=== PATIENT | female | born 1960 | race Two or more races ===

== ENCOUNTER 2024-08-02 09:41 | Outpatient (AMB) | payer MEDICARE, MEDICAID, SELFPAY ==
[2024-08-02 09:59] VITALS: BP 129/89; PULSE 61; RESP 18; TEMP 36.3; O2SAT 99; BMI 17.6
--- NOTE | 2024-08-02 09:59 | ORTHONT_ITS ---
Vital signs 08/02/24 09:59 Height 1.52 m Height Method Stated Weight 40.823 kg Weight Measurement Method Standing Scale BMI 17.6 BP 129/89 H Blood Pressure Source Automatic Cuff Blood Pressure Location Right Upper Arm Position Sitting Respiration 18 Pulse 61 Pulse Source Monitor Temp 97.4 F Temp Source Temporal Artery Scan Pulse Oximetry (%) 99 Oxygen Delivery Method Room Air Med/Allergies Allergies & Medications Allergies No Known Allergies Allergy (Verified 08/02/24 10:00) Medication Reconciliation No Known Home Medications 05/26/23 [History Confirmed 08/02/24] Exam Exam Patient is in no acute distress and is cooperative with the examination today. Breathing is nonlabored. Patient has a normal mood and affect. Bilateral extremities were evaluated and demonstrates sensation intact to light touch. Palpable pedal pulses are present. No significant edema is present. Bilateral hips were examined. The patient has no pain with log roll of the hips. Internal rotation to 30 degrees and external rotation to 30 degrees is painless. Negative FADIR. Left knee was examined today. The left knee is in reasonable alignment. Range of motion from 0-120 degrees. Knee is stable to varus and valgus as well as AP translation with <5mm. Patient has a negative McMurrays. There is no pain with patellofemoral compression and no crepitus noted. The knee is nontender to palpation. The right knee was also examined. The right knee is in varus alignment. Range of motion from 10-115 degrees. Knee is stable to varus and valgus as well as AP translation with <5mm. Patient has a negative McMurrays. There is no pain with patellofemoral compression and no crepitus noted. The knee is tender to palpation medially. X-ray results demonstrate bilateral knees with significant nephritis of both knees. There is complete joint space loss medially and significant osteophytes Assessment and Plan Problem List (1) Pain in right knee: Status: Acute Plan: Patient is a 63-year-old female with right knee pain and likely right knee osteoarthritis. She has significant right joint spae narrowing and arthritisd. She has a quite impressive flexion contracture. The pain is affecting her quality life and happiness. We disucssed continued nonoperative treatment and total knee replacement. Recommend knee cortisone injections as patient would like to proceed with conservative treatment at this time. The risks and benefits of the procedure were reviewed with the patient and patient gave verbal consent to continue with the procedure. Procedure: performed by Dr. Membreno Using sterile technique the Bilateral knees were thoroughly prepped with alcohol, and approximately 1 cc of Kenalog 40 mg/mL and 4 cc of 1% lidocaine was injected into each knee without resistance into the medial tibial femoral joint space. The patient tolerated the procedure. (2) Arthritis of both knees: Status: Acute Advanced Care Planning Discussion Advance care planning discussed with:: patient Office Procedures GNS Level of Care Nursing/Assessment Patient Status: Established Patient Nursing Assessment/Reassesment: Medication Reconciliation, Update PMH in EMR and Vital Signs Coordination of Care: Complex Care and Chronic Disease 1-5, Education Complex Pt/Fam, Consent,records obtained, informed consent, 2-3 Insurance Autorizations needed, Results/Orders obtained and Staff clarify orders Special Needs: Language special needs Established Patient Charge Established Patient Point Assignment: 115 Established Patient Point Charge: EP Level 3 (80-115) Surgical Proc/IM SQ injection Major Surgical Procedure: Yes (KNEE INJECTIONS ) Medication Given Medication Given Medication Given: Yes Documented Dose Given: 8 Route: Infiitration Medication Given Medication Given Medication Given: Yes Documented Dose Given: 2 Route: Infiitration Office Meds Xylocaine 10 mg/mL (1 %) injection solution Performing Provider: Romario Membreno MD Performing Location: [facility] Administered by: Romario Membreno MD on 08/02/24 10:19 Dose Route Admin Location Dispensed Lot Number Expiration Date [facility] [employer] Specialist 40 mL Infiltration 40 mL [id number] FRESEN S KA triamcinolone acetonide 40 mg/mL suspension for injection Performing Provider: Romario Membreno MD Performing Location: [facility] Administered by: Romario Membreno MD on 08/02/24 10:19 Dose Route Admin Location Dispensed Lot Number Expiration Date [facility] [employer] 80 mg intra-articular 2 mL [id number] TEV A PARENTERAL Questionairres Past Medical History Past Medical History Have you ever been diagnosed with any of the following: Respiratory Problems Smoking: No Smoking Cessation Counseling: No Smoking Exposure: No Tobacco Use: No Subjective Immunization / Flu Flu Vaccine in the Last 12 Months: Yes Flu Vaccine Exclusion Criteria: Allergy to Eggs History of Present Illness Chief complaint: bilateral knee pain Patient is a 63-year-old female with right knee pain has been ongoing for 8 years. She has tried injections in the past. She has tried anti-inflammatories with minimal relief and due to GI side effects. She reports the pain is bothering her and is affecting her quality life and happiness.The right knee pain is affecting her quality life and happiness. She has had multiple injections with me and would like new ones today. She would like to get surgery in the summertime as her daughter will be around Review of Systems Review of Systems: All systems negative unless otherwise noted in HPI.
== END 2024-08-02 10:16 | disposition home or self-care (01) ==
LOC: HODSRG 09:41
PROVIDERS: PCP Physician Assistant; Referring Provider Physician Assistant; Supervising Provider Orthopaedic Surgery Adult Reconstructive Orthopaedic Surgery; Visit Provider Orthopaedic Surgery Adult Reconstructive Orthopaedic Surgery
DX: M25.561 Pain in right knee (principal); M17.0 Bilateral primary osteoarthritis of knee; M25.80 Other specified joint disorders, unspecified joint
CPT/HCPCS: 20610; 99213; J3301; J3490; G0463

== ENCOUNTER 2024-12-12 08:49 | Outpatient (AMB) | payer MEDICARE, MEDICAID, SELFPAY ==
[2024-12-12 09:08] VITALS: BP 155/83; PULSE 72; RESP 18; TEMP 36.2; O2SAT 98; BMI 17.2
--- NOTE | 2024-12-12 09:08 | ORTHONT_ITS ---
Vital signs 12/12/24 09:08 Height 1.52 m Height Method Stated Weight 39.916 kg Weight Measurement Method Standing Scale BMI 17.2 BP 155/83 H Blood Pressure Source Automatic Cuff Blood Pressure Location Left Upper Arm Position Sitting Respiration 18 Pulse 72 Pulse Source Monitor Temp 97.1 F Temp Source Temporal Artery Scan Pulse Oximetry (%) 98 Oxygen Delivery Method Room Air Med/Allergies Allergies & Medications Allergies No Known Allergies Allergy (Verified 12/12/24 09:10) Medication Reconciliation No Known Home Medications 05/26/23 [History Confirmed 12/12/24] Exam Exam Patient is in no acute distress and is cooperative with the examination today. Breathing is nonlabored. Patient has a normal mood and affect. Bilateral extremities were evaluated and demonstrates sensation intact to light touch. Palpable pedal pulses are present. No significant edema is present. Bilateral hips were examined. The patient has no pain with log roll of the hips. Internal rotation to 30 degrees and external rotation to 30 degrees is painless. Negative FADIR. Left knee was examined today. The left knee is in reasonable alignment. Range of motion from 0-120 degrees. Knee is stable to varus and valgus as well as AP translation with <5mm. Patient has a negative McMurrays. There is no pain with patellofemoral compression and no crepitus noted. The knee is nontender to palpation. The right knee was also examined. The right knee is in varus alignment. Range of motion from 10-115 degrees. Knee is stable to varus and valgus as well as AP translation with <5mm. Patient has a negative McMurrays. There is no pain with patellofemoral compression and no crepitus noted. The knee is tender to palpation medially. X-ray results demonstrate bilateral knees with significant arthritis of both knees. There is complete joint space loss medially and significant osteophytes Assessment and Plan Problem List (1) Pain in right knee: Status: Acute Plan: Patient is a 63-year-old female with right knee pain and likely right knee osteoarthritis. She has significant right joint spae narrowing and arthritisd. She has a quite impressive flexion contracture. The pain is affecting her quality life and happiness. We disucssed continued nonoperative treatment and total knee replacement. She would like to proceed with a right total knee replacement and would like to get injections in her left The nature and purpose of the total knee replacement, alternative method(s) of treatment, the material risks involved, and the possibility of complications were fully explained to the patient. The patient does NOT have any of the following contraindications to TKA: - Active infection of the knee joint, OR - Active systemic bacteremia, OR - Active skin infection or open wound at surgical site, OR - Neuropathic arthritis, OR - Severe, rapidly progressive neurological disease, OR - Severe medical condition that makes risks of surgery outweigh the potential benefit The patient was told the most common risks and complications associated with a total knee replacement include, but are not limited to: blood clots in the leg, fatal pulmonary embolism, dislocation of the prosthesis, intraoperative and postoperative fractures of the femur or tibia, infection, failure of the prosthesis or grafting materials, complications from anesthesia, reactions to blood transfusions, postoperative leg length inequality, instability of the knee replacement, nerve damage or injury, vascular injury, delayed wound healing, infection, other injury or even . In addition, there are risks associated with anesthesia given during this operation. Also, the patient was told that after undergoing a total knee replacement there may still be persistent pain or disability. The patient was informed that the success of this operation in part depends upon the mechanical devices which are going to be implanted and that these devices can fail or malfunction, and may need to be repaired or replaced and there are no guarantees as to the longevity of this device or its parts and that it or its parts could fail prematurely. The patient was also notified that during the course of surgery, there may be a need to use bone graft from donors, and that any bone graft used will be carefully screened for communicable diseases, including AIDS, hepatitis, Sivakumar-Creutzfeldt, or other diseases, but despite the screening procedures, there is a small chance that they could contract one of these diseases. Finally, the patient was asked to follow completely and fully with all advice and recommended treatments, and that recovery and ultimate outcome are affected by their compliance with recommended treatment. We discussed the risks, benefits and treatment alternatives, and the patient is interested in proceeding with surgery. We will try to set this up as expeditiously as possible. Recommend knee cortisone injection as patient would like to proceed with conservative treatment at this time. The risks and benefits of the procedure were reviewed with the patient and patient gave verbal consent to continue with the procedure. Procedure: performed by Dr. Membreno Using sterile technique the left knee was thoroughly prepped with alcohol, and approximately 1 cc of Kenalog 40 mg/mL and 4 cc of 1% lidocaine was injected without resistance into the medial tibial femoral joint space. The patient tolerated the procedure. (2) Arthritis of both knees: Status: Acute Advanced Care Planning Discussion Advance care planning discussed with:: patient Office Procedures GNS Level of Care Nursing/Assessment Patient Status: Established Patient Nursing Assessment/Reassesment: Medication Reconciliation, Update PMH in EMR and Vital Signs Coordination of Care: Complex Care and Chronic Disease 1-5, Education Complex Pt/Fam, Consent,records obtained, informed consent, Results/Orders obtained and Staff clarify orders Special Needs: Language special needs Established Patient Charge Established Patient Point Assignment: 95 Established Patient Point Charge: EP Level 3 (80-115) MA Intake Visit Data Collection New Patient or Established: Established Patient (seen at [facility] within 3 years) Reason for Visit:: PRE-OP RT TKA Seen by Clinical Staff ONLY (RN/MA): No 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 PCP or OBGYN visit in last 3 months: Yes Hx Now: No Do You Feel Safe at Home: Yes Authorities Contacted: N/A Questionairres Past Medical History Past Medical History Have you ever been diagnosed with any of the following: Respiratory Problems Smoking: No Smoking Cessation Counseling: No Smoking Exposure: No Tobacco Use: No Subjective Visit Visit for: follow up visit and knee Immunization / Flu Flu Vaccine in the Last 12 Months: No Flu Vaccine Exclusion Criteria: No Exclusion Criteria History of Present Illness Chief complaint: bilateral knee pain Patient is a 63-year-old female with right knee pain has been ongoing for 8 years. She has tried injections in the past. She has tried anti-inflammatories with minimal relief and due to GI side effects. She reports the pain is bothering her and is affecting her quality life and happiness.The right knee pain is affecting her quality life and happiness. She has had multiple injections with me and would like new ones today. She would like to get surgery forher right knee as her daughter is now around Pain Pain level (0-10): 8 Pain duration: ALL DAY Pain location: inside (medial) and anterior Pain quality: sharp, dull and aching Pain timing: increases with activity and stairs Associated signs & symptoms: weakness and stiffness Ambulatory data Ambulatory device: none Treatments Improvement with previous injections: No Improvement with PT: No Improvement with NSAIDS: no Review of Systems Review of Systems: All systems negative unless otherwise noted in HPI.
--- NOTE | 2024-12-12 09:12 | XR_ITS ---
Examination: Shoulder right 4 views Technique: Shoulder AP internal rotation, AP external rotation, Y view shoulder, axial shoulder, 4 views Exam date and time :08/14/2024 0929 hours INDICATIONS: Injury to the shoulder 20 years ago with persistent shoulder pain. FINDINGS: Advanced osteoarthritis glenohumeral joint Obliteration of the space between the humeral head and the acromium No fracture No AC joint separation IMPRESSION: Advanced osteoarthritis glenohumeral joint
== END 2024-12-12 09:28 | disposition home or self-care (01) ==
LOC: HODSRG 08:49
PROVIDERS: PCP Physician Assistant; Referring Provider Physician Assistant; Supervising Provider Orthopaedic Surgery Adult Reconstructive Orthopaedic Surgery; Visit Provider Orthopaedic Surgery Adult Reconstructive Orthopaedic Surgery
DX: M25.561 Pain in right knee (principal); M17.0 Bilateral primary osteoarthritis of knee
CPT/HCPCS: 20610; 73030; 99213; J3301; J3490; G0463

== ENCOUNTER → 2025-01-02 | Outpatient (CLI) | payer MEDICARE, MEDICAID, SELFPAY ==
--- NOTE | 2025-01-02 10:30 | XR_ITS ---
Examination: CT right lower extremity, without contrast. 2-D sagittal reconstructions. 2-D coronal reconstructions. 3-D reconstructions. Date and time of exam:January 02, 2025 1038 hours INDICATIONS: Diagnosis bilateral knee osteoarthritis, primary, right knee pain 10 years CTDI: vol (mGy):7.47 DLP: (mGycm):495 Technique: Multiple 1.25 mm axial sections of the right lower extremity without intravenous contrast have been obtained. 2-D sagittal and coronal reconstructions have been obtained. 3-D reconstructions have been obtained. Low dose protocols were performed. One or more of the following dose reduction techniques were used; automated exposure control, adjustment of the mA and/or KV according to patient size, use of iterative reconstruction technique. Findings: Significant osteopenia. Moderate right hip osteoarthritis. No right hip fracture or dislocation Mild calcification in the greater trochanteric bursa Severe tricompartment osteoarthritis right knee No fracture No patellar dislocation IMPRESSION: Severe right knee tricompartment osteoarthritis
== END | disposition home or self-care (01) ==
LOC: SCAT 01-03 07:52
PROVIDERS: PCP Physician Assistant; Referring Provider Orthopaedic Surgery Adult Reconstructive Orthopaedic Surgery; Visit Provider Orthopaedic Surgery Adult Reconstructive Orthopaedic Surgery
DX: M17.11 Unilateral primary osteoarthritis, right knee (principal)
CPT/HCPCS: 73700

== ENCOUNTER 2025-01-06 05:40 | Day surgery (SDC) | payer MEDICARE, MEDICAID, SELFPAY ==
[2025-01-02 08:46] VITALS: BMI 19.1
[2025-01-02 09:43] LABS: Basophils # (Auto) 0.0 Thou/mm3 (0.0-0.2); Basophils % (Auto) 1 % (0-2.5); Eosinophils # (Auto) 0.2 Thou/mm3 (0.0-0.5); Eosinophils % (Auto) 4 % (0-10); Hematocrit 34.7 % (36.0-46.0); Hemoglobin 11.4 g/dL (12.0-16.0); Immature Granulocytes Auto 0.01 Thou/mm3 (0.00-0.00); Lymphocytes # (Auto) 1.2 Thou/mm3 (1.0-4.8); Lymphocytes % (Auto) 28 % (10-50); Mean Corpuscular HGB Conc 32.9 g/dl (31.0-37.0); Mean Corpuscular Hemoglobin 29.8 pg (25.0-35.0); Mean Corpuscular Volume 91 fL (80-100); Monocytes # (Auto) 0.3 Thou/mm3 (0.0-0.8); Monocytes % (Auto) 7 % (0-12); Neutrophils # (Auto) 2.5 Thou/mm3 (1.8-7.7); Neutrophils % (Auto) 60 % (37-80); Nucleated Red Blood Cell # 0.00 Thou/mm3 (0.00-0.00); Nucleated Red Blood Cell % 0 /100 WBC (0); Platelet Count 187 Thou/mm3 (140-440); RDW Standard Deviation 49.9 fL (36.4-46.3); Red Blood Count 3.82 Miln/mm3 (4.00-5.20); White Blood Count 4.2 Thou/mm3 (3.6-11.0)
[2025-01-02 09:50] LABS: INR 1.0 (0.9-1.3); Partial Thromboplastin Time 25.1 Seconds (22.0-36.0); Prothrombin Time 10.8 Seconds (9.0-12.2)
[2025-01-02 09:57] LABS: Alanine Aminotransferase 15 U/L (10-49); Albumin, Serum 4.5 gm/dL (3.4-4.8); Albumin/Globulin Ratio 1.9 (1.2-2.2); Alkaline Phosphatase 72 U/L (46-116); Anion Gap 5 (7-16); Aspartate Amino Transferase 22 U/L (0-34); BUN/Creatinine Ratio 27 Ratio (12-20); Bilirubin,Total 0.5 mg/dL (0.3-1.2); Blood Urea Nitrogen 19 mg/dL (9-23); Calcium 9.1 mg/dL (8.3-10.6); Calcium (Corrected) 9.1 mg/dL (8.5-10.1); Carbon Dioxide 29.1 mMol/L (20.0-31.0); Chloride 108 mMol/L (98-107); Creatinine (Component) 0.7 mg/dL (0.6-1.3); Estimated Creatinine Clearance 48.8 mL/min (>60); Globulin 2.4 gm/dL (2.3-3.5); Glucose 96 mg/dL (74-106); Osmolality,Calculated 285 (275-295); Potassium 4.1 mMol/L (3.4-5.1); Sodium 142 mMol/L (136-145); Total Protein 6.9 gm/dL (5.7-8.2); eGFR > 60 See Note
[2025-01-06] VITALS (16 sets, daily range): BP systolic 116–142; BP diastolic 53–78; PULSE 58–85; RESP 14–20; TEMP 36.4–37; O2SAT 95–100; BMI 19.3
[2025-01-06] MEDS: PREGABALIN 75 MG CAPSULE PO (06:46)
[2025-01-06] MEDS: ACETAMINOPHEN 325 MG TABLET 650 MG PO (06:46)
[2025-01-06] MEDS: MELOXICAM 7.5 MG TABLET PO (06:46)
--- NOTE | 2025-01-06 09:14 | XR_ITS ---
Examination: Right knee 2 views Technique one AP lateral supine right knee portable 2 views Date and time: January 06, 2025 0950 hours INDICATIONS: Postop knee replacement. FINDINGS: Prominent osteopenia Total right knee replacement. Satisfactory alignment No fractures IMPRESSION: Total right knee replacement with satisfactory alignment
--- NOTE | 2025-01-06 09:18 | PD.SUROPNT ---
Date of Procedure 01/06/25 Pre Op Diagnosis right knee osteoarthritis Post Op Diagnosis right knee osteoarthritis Procedure right total knee replacement willy Findings full thickness cartilage loss and osteophytes Procedure Description Indication: The patient is a 64 year old who has a long history of right knee pain. X-rays show degenerative arthritis involving the knee. Over the past several years the patient has had increasing pain, progressive limitation in function. He has failed conservative measures including activity modification, physical therapy, injections, anti-inflammatories, and assistive devices. After a lengthy discussion of the risks and benefits, the patient presents now for total knee replacement. The nature and purpose of the total knee replacement, alternative method(s) of treatment, the material risks involved, and the possibility of complications were fully explained to the patient. The patient was told the most common risks and complications associated with a total knee replacement include, but are not limited to blood clots in the leg, fatal pulmonary embolism, dislocation of the prosthesis, intraoperative and postoperative fractures of the femur or tibia, infection, failure of the prosthesis or grafting materials, complications from anesthesia, reactions to blood transfusions, postoperative leg length inequality, instability of the knee replacement, nerve damage or injury, vascular injury, delayed wound healing, infections, other injury or even . In addition, there are risks associated with anesthesia given during this operation, temporary or permanent numbness on the skin lateral to the incision can be a complication unique to total knee surgery, and kneeling can be painful after knee replacement surgery. Also, the patient was told that after undergoing a total knee replacement there may still be pain or disability. We discussed with the patient that we will be using a robot-assisted technology. We discussed that there is a possibility of converting to manual instrumentation. The patient was informed that the success of this operation in part depends upon the mechanical devices which are going to be implanted and that these devices can fail or malfunction, and may need to be repaired or replaced and there are no guarantees as to the longevity of this device or its part and that it or its parts could fail prematurely. Finally, the patient was asked to follow completely and fully with all advice and recommended treatments, and that recovery and ultimate outcome are affected by their compliance with recommended treatment. Surgical technique: Patient was marked and consented in the pre-operative area. The patient was brought to the operating room and placed on the operating table in a supine position. Prior to positioning, a timeout procedure was performed between the surgeon, the anesthesiologist, and the nursing staff where the patient and the operative side were identified and confirmed. After adequate general anesthetic was obtained, the right lower extremity was prepped and draped in the usual sterile fashion. A weight based dose of Cefazolin were administered within 1 hour prior to incision. The robot was preregistered and calirated before the incision. The extremity was exsanguinated with an esmarch badge and tourniquet inflated to 250mmHg. A midline incision was made. A median parapatellar arthrotomy was made. The patella was subluxed laterally. A medial release was performed to expose the medial tibia. His femoral and tibial pins were placed through an intra incisional manner for both cases. Every effort was made to ensure that the distalmost aspect of the pin was hung in the second cortex. The arrays were then tightened several times to ensure that it was fixed for the remainder of the case. Both femoral and tibial checkpoints were then placed. We then went through the registration process of the bone. We then assessed the knee deformity and attempted to correct it. We also used the robot to aid in judging laxity in both extension and flexion. Final based on laxity and alignment we changed the preoperative assessment to obtain proper proper implant positioning and to correct deformity. Attention was then placed to the tibia. We made a tibial cut using the robot ensuring that both the MCL and the patella tendon were protected with retractors. We then went to the femur and made the posterior cut followed by the anterior cut and the anterior chamfer. The bone was then removed and we made a distal femur cut and a posterior chamfer cut. We verified all cuts. A trial reduction was performed with a size 2 femoral component and a size [2] keeled tibial component. The patella was cut and sized to a 31. The patella tracked centrally, and no lateral retinacular release was necessary. The trial implants were removed. The arrays, pins, and checkpoints were all removed. We performed a verification that all pins were removed. The cut bone surfaces were lavaged. A size 2 right femoral component, a size [2] keeled tibial component, and a size 31 patella were impacted into position. The knee was felt to be well balanced in the sagittal and coronal plane. The final 2x10 mm cruciate-substituting articular insert was impacted into the tibial tray. The knee was brought out to full extension, flexed up to 120 degrees. It was stable to varus and valgus stress and appropriately balanced in flexion and extension. The wounds were copiously irrigated following deflation of tourniquet. The medial retinaculum was reapproximated with #1 vicryl and quill. The subcutaneous tissues were closed with 0 and 2-0 interrupted Vicryl. The skin was closed with 3-0 Monofilament V loc suture. A sterile dressing was applied. The patient was transferred to a bed and brought to recovery in stable condition. The patient tolerated the procedure well. There were no intraoperative complications. Sponge and needle counts were correct times 2. As the attending surgeon, Karol leung I was present and performed the entire operation. Grafts/Implants Size 2 CR Femur Size [2] Tibia 10mm poly CS 31mm patella Anesthesia spinal Implants christina Pathology / specimen None Pathology comment: none Estimated Blood Loss 150 Condition Stable Disposition same day Surgeon Romario Membreno MD Surgical Staff Operation Date: 01/06/25 07:30 Case Staff SENIOR PACKAGING ENGINEER: Sandra Juárez RN First Assistant: Kaylah Wells
--- NOTE | 2025-01-06 09:35 | SUR.PHASEI ---
0935: Pt. AAOx4, vitals stable, breathing unlabored, no complaint of pain or nausea, dressing to right knee CDI, no active bleed noted, pt. able to wiggle bilateral legs, cap refill to bilateral feet less than 3 seconds, bilateral dorsalis pedis pulses strong and regular, report received from Autumn TATUM and Sandra KATZ.
[2025-01-06] MEDS: ONDANSETRON INJ 2 MG/ML INJ 2 ML 4 MG IVP (10:12)
[2025-01-06] MEDS: PROMETHAZINE INJ 12.5 MG in SODIUM CHLORIDE 0.9% 50 ML 202 MG IV (11:24)
--- NOTE | 2025-01-06 11:45 | SUR.PHASEII ---
Received report on pt. s/p surgery from Melissa TATUM. Pt. is resting with eyes closed, responds to verbal commands, VSS, no c/o pain or nausea at this time, dressing to right knee CDI.
--- NOTE | 2025-01-06 11:45 | SUR.PHASEII ---
1145: Report given to Kate TATUM to resume care, pt. AAOx4, vitals stable, breathing unlabored, no complaint of pain or nausea, dressing to right knee CDI, no active bleed noted.
--- NOTE | 2025-01-06 12:18 | SUR.PHASEII ---
1218: Report received from Kate TATUM. Pt. AAOx4, vitals stable, breathing unlabored, no complaint of pain or nausea, dressing to right knee CDI.
--- NOTE | 2025-01-06 13:15 | SUR.PHASEII ---
1315: Pt. AAOx4, vitals stable, breathing unlabored, no complaint of pain or nausea, dressing to right knee CDI, no active bleed noted, bilateral dorsalis pedis pulses strong and regular, pt. tolerated physical therapy well, pt. tolerated sips of water well, pt. ambulated to wheelchair with steady gait and minimal assist, no complications. Gave discharge instructions to the pt. and her ride using news copy editor, both verbalized understanding and had no further questions. PT. left with all personal belongings.
== END 2025-01-06 13:15 | disposition home or self-care (01) ==
PROVIDERS: Anesthesiology; PCP Physician Assistant; Referring Provider Orthopaedic Surgery Adult Reconstructive Orthopaedic Surgery; Visit Provider Orthopaedic Surgery Adult Reconstructive Orthopaedic Surgery
PROC: (CPT 27447; principal; 2025-01-06 07:30)
DX: M17.11 Unilateral primary osteoarthritis, right knee (principal); M25.761 Osteophyte, right knee
CPT/HCPCS: 27447; 20985; 36415; 73560; 80053; 85025; 85610; 85730; 97162; A4217; C1713; C1776; J0690; J1100; J2405; J2550; J2704; J2795; J3010; J3490; J7999; A4648; A4649; A9270

== ENCOUNTER 2025-01-21 10:28 | Outpatient (AMB) | payer MEDICARE, MEDICAID, SELFPAY ==
--- NOTE | 2025-01-21 10:37 | PD.ORTHCLVIS ---
Vital signs 01/21/25 10:39 Height 1.42 m Height Method Stated Weight 40.908 kg Weight Measurement Method Standing Scale BMI 20.2 BP 151/68 H Blood Pressure Source Automatic Cuff Blood Pressure Location Left Upper Arm Position Sitting Respiration 18 Pulse 70 Pulse Source Monitor Temp 98.2 F Temp Source Temporal Artery Scan Pulse Oximetry (%) 98 Oxygen Delivery Method Room Air Med/Allergies Allergies & Medications Allergies No Known Allergies Allergy (Verified 01/21/25 10:38) Medication Reconciliation acetaminophen 500 mg tablet (Acetaminophen Pain Relief) 500 mg PO Q6H PRN pain 01/02/25 [History Confirmed 01/21/25] calcium carb-ergocalciferol (vit D2) 600 mg calcium-200 unit tablet 1 tab PO DAILY 01/02/25 [History Confirmed 01/21/25] acetaminophen 500 mg tablet (Acetaminophen Extra Strength) 1,000 mg (2 x 500 mg) PO Q6H PRN pain #90 tabs 01/06/25 [Rx Confirmed 01/21/25] aspirin 81 mg tablet,delayed release 81 mg PO BID #60 tabs 01/06/25 [Rx Confirmed 01/21/25] doxycycline hyclate 100 mg tablet 100 mg PO BID #14 tabs 01/06/25 [Rx Confirmed 01/21/25] gabapentin 300 mg capsule 300 mg PO .qhs #30 caps 01/06/25 [Rx Confirmed 01/21/25] sennosides 8.6 mg-docusate sodium 50 mg tablet (Senna-S) 1 tab-cap PO QDAY #30 tabs 01/06/25 [Rx Confirmed 01/21/25] hydrocodone 5 mg-acetaminophen 325 mg tablet 1 tab PO Q6H PRN pain #28 tabs 01/08/25 [Rx Confirmed 01/21/25] pantoprazole 40 mg tablet,delayed release 40 mg PO QDAY #28 tabs 01/08/25 [Rx Confirmed 01/21/25] ondansetron 4 mg disintegrating tablet 4 mg PO Q8H PRN nausea and vomiting #10 tabs 01/09/25 [Rx Confirmed 01/21/25] Exam Exam Patient is in no acute distress and is cooperative with the examination today. Breathing is nonlabored. Patient has a normal mood and affect. Bilateral extremities were evaluated and demonstrates sensation intact to light touch. Palpable pedal pulses are present. No significant edema is present. Bilateral hips were examined. The patient has no pain with log roll of the hips. Internal rotation to 30 degrees and external rotation to 30 degrees is painless. Negative FADIR. Left knee was examined today. The left knee is in reasonable alignment. Range of motion from 0-120 degrees. Knee is stable to varus and valgus as well as AP translation with <5mm. Patient has a negative McMurrays. There is no pain with patellofemoral compression and no crepitus noted. The knee is nontender to palpation. The right knee incision is c/d/i. ROM is 0-95 degrees Assessment and Plan Problem List (1) Arthritis of both knees: Status: Acute (2) History of total right knee replacement: Status: Acute Plan: Patient is doing well s/p R TKA 2 weeks ago. She had nausea initially which has now resolved. We will see her for routine followup in 4 weeks with new xrays Advanced Care Planning Discussion Advance care planning discussed with:: patient Office Procedures GNS Level of Care Nursing/Assessment Patient Status: Established Patient Nursing Assessment/Reassesment: Medication Reconciliation, Update PMH in EMR and Vital Signs Coordination of Care: Complex Care and Chronic Disease 1-5, Education Complex Pt/Fam, Consent,records obtained, informed consent, Results/Orders obtained and Staff clarify orders Established Patient Charge Established Patient Point Assignment: 95 Established Patient Point Charge: EP Level 3 (80-115) MA Intake Visit Data Collection New Patient or Established: Established Patient (seen at [facility] within 3 years) Reason for Visit:: POST OP Seen by Clinical Staff ONLY (RN/MA): No Dye Operator Required: Yes PCP or OBGYN visit in last 3 months: Yes Hx Now: No Do You Feel Safe at Home: Yes Authorities Contacted: N/A Questionairres Past Medical History Past Medical History Have you ever been diagnosed with any of the following: Neurological Problems Seizures: No Cardiology Problems Congestive Heart Failure: No Varicose Veins: Yes Respiratory Problems Chronic Obstructive Pulmonary Disease (COPD): No Smoking: No Smoking Cessation Counseling: No Smoking Exposure: No Tobacco Use: No Stomache/Intestinal Problems Hepatitis: No Ulcer: Yes (gastritis) Genital/Urinary Problems Renal Disease: No Reproductive Problems Previous Pregnancies: Yes Musculoskeletal Problems Arthritis: Yes Endocrine Problems Diabetes Mellitus Type 1: No Diabetes Mellitus Type 2: No Other Problems Hospitalization: No Shingles: No Blood Transfusions: No Blood Transfusion Reaction: No Anesthesia Reactions: No Measles: Yes Cancer: No Subjective Visit Visit for: follow up visit, post op #1 and knee Immunization / Flu Flu Vaccine in the Last 12 Months: No Flu Vaccine Exclusion Criteria: No Exclusion Criteria History of Present Illness Chief complaint: bilateral knee pain Patient is a 63-year-old female with right knee pain sp R TKA. SHe is doing well. She has significant right shoulder arthritis and we would recommend a refill Pain Pain level (0-10): 8 Pain duration: ALL DAY Pain location: inside (medial) and anterior Pain quality: sharp, dull and aching Pain timing: increases with activity and stairs Associated signs & symptoms: weakness and stiffness Ambulatory data Ambulatory device: none Treatments Improvement with previous injections: No Improvement with PT: No Improvement with NSAIDS: no Review of Systems Review of Systems: All systems negative unless otherwise noted in HPI.
[2025-01-21 10:39] VITALS: BP 151/68; PULSE 70; RESP 18; TEMP 36.8; O2SAT 98; BMI 20.2
== END 2025-01-21 11:11 | disposition home or self-care (01) ==
LOC: HODSRG 10:28
PROVIDERS: PCP Physician Assistant; Referring Provider Physician Assistant; Supervising Provider Orthopaedic Surgery Adult Reconstructive Orthopaedic Surgery; Visit Provider Orthopaedic Surgery Adult Reconstructive Orthopaedic Surgery
DX: M17.0 Bilateral primary osteoarthritis of knee (principal); Z96.651 Presence of right artificial knee joint; M19.011 Primary osteoarthritis, right shoulder
CPT/HCPCS: 99213; G0463

== ENCOUNTER 2025-02-18 10:40 | Outpatient (AMB) | payer MEDICARE, MEDICAID, SELFPAY ==
--- NOTE | 2025-02-18 11:17 | PD.ORTHCLVIS ---
Med/Allergies Allergies & Medications Allergies No Known Allergies Allergy (Verified 01/21/25 10:38) Exam Exam Patient is in no acute distress and is cooperative with the examination today. Breathing is nonlabored. Patient has a normal mood and affect. Bilateral extremities were evaluated and demonstrates sensation intact to light touch. Palpable pedal pulses are present. No significant edema is present. Bilateral hips were examined. The patient has no pain with log roll of the hips. Internal rotation to 30 degrees and external rotation to 30 degrees is painless. Negative FADIR. Left knee was examined today. The left knee is in reasonable alignment. Range of motion from 0-120 degrees. Knee is stable to varus and valgus as well as AP translation with <5mm. Patient has a negative McMurrays. There is no pain with patellofemoral compression and no crepitus noted. The knee is nontender to palpation. The right knee incision is c/d/i. ROM is 0-95 degrees Assessment and Plan Problem List (1) Arthritis of both knees: Status: Acute (2) History of total right knee replacement: Status: Acute Plan: Patient is doing well s/p R TKA 6 weeks ago. She had nausea initially which has now resolved. We will see her for routine followup in 6-8 weeks with new xrays Advanced Care Planning Discussion Advance care planning discussed with:: patient Office Procedures GNS Level of Care Nursing/Assessment Patient Status: Established Patient Nursing Assessment/Reassesment: Medication Reconciliation, Update PMH in EMR and Vital Signs Coordination of Care: Complex Care and Chronic Disease 1-5, Education Complex Pt/Fam, Consent,records obtained, informed consent, Results/Orders obtained and Staff clarify orders Special Needs: Language special needs Established Patient Charge Established Patient Point Assignment: 95 Established Patient Point Charge: EP Level 3 (80-115) MA Intake Visit Data Collection New Patient or Established: Established Patient (seen at [facility] within 3 years) Reason for Visit:: POST OP Seen by Clinical Staff ONLY (RN/MA): No Carbon Printer Required: Yes PCP or OBGYN visit in last 3 months: Yes Hx Now: No Do You Feel Safe at Home: Yes Authorities Contacted: N/A Questionairres Past Medical History Past Medical History Have you ever been diagnosed with any of the following: Neurological Problems Seizures: No Cardiology Problems Congestive Heart Failure: No Varicose Veins: Yes Respiratory Problems Chronic Obstructive Pulmonary Disease (COPD): No Smoking: No Smoking Cessation Counseling: No Smoking Exposure: No Tobacco Use: No Stomache/Intestinal Problems Hepatitis: No Ulcer: Yes (gastritis) Genital/Urinary Problems Renal Disease: No Reproductive Problems Previous Pregnancies: Yes Musculoskeletal Problems Arthritis: Yes Endocrine Problems Diabetes Mellitus Type 1: No Diabetes Mellitus Type 2: No Other Problems Hospitalization: No Shingles: No Blood Transfusions: No Blood Transfusion Reaction: No Anesthesia Reactions: No Measles: Yes Cancer: No Subjective Visit Visit for: follow up visit, post op #1 and knee Immunization / Flu Flu Vaccine in the Last 12 Months: No Flu Vaccine Exclusion Criteria: No Exclusion Criteria History of Present Illness Chief complaint: bilateral knee pain Patient is a 63-year-old female with right knee pain sp R TKA. SHe is doing well. She has significant right shoulder arthritis and we would recommend a refill Pain Pain level (0-10): 8 Pain duration: ALL DAY Pain location: inside (medial) and anterior Pain quality: sharp, dull and aching Pain timing: increases with activity and stairs Associated signs & symptoms: weakness and stiffness Ambulatory data Ambulatory device: none Treatments Improvement with previous injections: No Improvement with PT: No Improvement with NSAIDS: no Review of Systems Review of Systems: All systems negative unless otherwise noted in HPI.
--- NOTE | 2025-02-18 11:25 | XR_ITS ---
Examination: AP bilateral knee single view Right knee PA lateral axial 3 views TECHNIQUE: Bilateral AP knee single view Right knee PA standing flexion, standing lateral, axial right knee 3 views total 4 views Date and time: February 18, 2025 1202 hours INDICATIONS: Right knee replacement beginning 6 weeks ago. FINDINGS: Total right knee arthroplasty. Satisfactory alignment. No loosening of the prosthetic components. No patellar dislocation Moderate narrowing medial joint space left knee Advanced lateral joint space left knee IMPRESSION: Total right knee arthroplasty with satisfactory alignment
== END 2025-02-18 11:30 | disposition home or self-care (01) ==
PROVIDERS: PCP Physician Assistant; Referring Provider Physician Assistant; Supervising Provider Orthopaedic Surgery Adult Reconstructive Orthopaedic Surgery; Visit Provider Orthopaedic Surgery Adult Reconstructive Orthopaedic Surgery
DX: M17.0 Bilateral primary osteoarthritis of knee (principal); Z96.651 Presence of right artificial knee joint; M19.011 Primary osteoarthritis, right shoulder
CPT/HCPCS: 73564; 99213; G0463

== ENCOUNTER 2025-05-08 09:59 | Outpatient (AMB) | payer MEDICARE, MEDICAID, SELFPAY ==
--- NOTE | 2025-05-08 10:35 | ORTHONT_ITS ---
Vital signs 05/08/25 10:38 Height 1.42 m Height Method Stated Weight 40.37 kg Weight Measurement Method Standing Scale BMI 20.0 BP 116/72 Blood Pressure Source Automatic Cuff Blood Pressure Location Left Upper Arm Position Sitting Respiration 18 Pulse 62 Pulse Source Monitor Temp 98.0 F Temp Source Temporal Artery Scan Pulse Oximetry (%) 98 Oxygen Delivery Method Room Air Med/Allergies Allergies & Medications Allergies No Known Allergies Allergy (Verified 05/08/25 10:39) Medication Reconciliation acetaminophen 500 mg tablet (Acetaminophen Pain Relief) 500 mg PO Q6H PRN pain 01/02/25 [History Confirmed 05/08/25] calcium carb-ergocalciferol (vit D2) 600 mg calcium-200 unit tablet 1 tab PO DAILY 01/02/25 [History Confirmed 05/08/25] aspirin 81 mg tablet,delayed release 81 mg PO BID #60 tabs 01/06/25 [Rx Confirmed 05/08/25] doxycycline hyclate 100 mg tablet 100 mg PO BID #14 tabs 01/06/25 [Rx Confirmed 05/08/25] sennosides 8.6 mg-docusate sodium 50 mg tablet (Senna-S) 1 tab-cap PO QDAY #30 tabs 01/06/25 [Rx Confirmed 05/08/25] hydrocodone 5 mg-acetaminophen 325 mg tablet 1 tab PO Q6H PRN pain #28 tabs 01/08/25 [Rx Confirmed 05/08/25] pantoprazole 40 mg tablet,delayed release 40 mg PO QDAY #28 tabs 01/08/25 [Rx Confirmed 05/08/25] ondansetron 4 mg disintegrating tablet 4 mg PO Q8H PRN nausea and vomiting #10 tabs 01/09/25 [Rx Confirmed 05/08/25] acetaminophen 500 mg tablet (Acetaminophen Extra Strength) 1,000 mg (2 x 500 mg) PO Q6H PRN pain #90 tabs 01/21/25 [Rx Confirmed 05/08/25] gabapentin 300 mg capsule 300 mg PO .qhs #30 caps 01/21/25 [Rx Confirmed 05/08/25] acetaminophen 500 mg tablet (Acetaminophen Extra Strength) 1,000 mg (2 x 500 mg) PO Q6H PRN pain #90 tabs 03/10/25 [Rx Confirmed 05/08/25] hydroxyzine HCl 25 mg tablet 25 mg PO TID PRN itching #30 tabs 03/10/25 [Rx Confirmed 05/08/25] gabapentin 300 mg capsule 300 mg PO .qhs #30 caps 04/15/25 [Rx Confirmed 05/08/25] Exam Exam Patient is in no acute distress and is cooperative with the examination today. Breathing is nonlabored. Patient has a normal mood and affect. Bilateral extremities were evaluated and demonstrates sensation intact to light touch. Palpable pedal pulses are present. No significant edema is present. Bilateral hips were examined. The patient has no pain with log roll of the hips. Internal rotation to 30 degrees and external rotation to 30 degrees is painless. Negative FADIR. Left knee was examined today. The left knee is in reasonable alignment. Range of motion from 0-120 degrees. Knee is stable to varus and valgus as well as AP translation with <5mm. Patient has a negative McMurrays. There is no pain with patellofemoral compression and no crepitus noted. The knee is nontender to palpation. The right knee incision is c/d/i. ROM is 0-95 degrees Assessment and Plan Problem List (1) Arthritis of both knees: Status: Acute (2) History of total right knee replacement: Status: Acute Plan: Patient is doing well s/p R TKA 12weeks ago. She would like a cortisone injection on the left Recommend knee cortisone injection as patient would like to proceed with conservative treatment at this time. The risks and benefits of the procedure were reviewed with the patient and patient gave verbal consent to continue with the procedure. Procedure: performed by Dr. Membreno Using sterile technique the left knee was thoroughly prepped with alcohol, and approximately 1 cc of Depo-Medrol 80mg/mL and 4 cc of 0.2% ropivacaine was injected without resistance into the medial tibial femoral joint space. The patient tolerated the procedure. Advanced Care Planning Discussion Advance care planning discussed with:: patient Office Procedures GNS Level of Care Nursing/Assessment Patient Status: Established Patient Nursing Assessment/Reassesment: Medication Reconciliation, Update PMH in EMR and Vital Signs Coordination of Care: Complex Care and Chronic Disease 1-5, Education Complex Pt/Fam, Consent,records obtained, informed consent, Results/Orders obtained and Staff clarify orders Special Needs: Language special needs Established Patient Charge Established Patient Point Assignment: 95 Established Patient Point Charge: EP Level 3 (80-115) Surgical Proc/IM SQ injection Minor Surgical Procedure: Yes (LEFT KNEE INJECTION) Medication Given Medication Given Medication Given: Yes Documented Dose Given: 1 Route: Infiitration Medication Given Medication Given Medication Given: Yes Documented Dose Given: 4 Route: Infiitration Office Meds methylprednisolone acetate 80 mg/mL suspension for injection Performing Provider: Romario Membreno MD Performing Location: [facility] Administered by: Romario Membreno MD on 05/08/25 11:51 Dose Route Admin Location Dispensed Lot Number Expiration Date Pack age [facility] Professor Of Physical Education 80 mg intra-articular 1 mL [id number] 01/22/27 [address]-8 [id number] [employer] ropivacaine (PF) 2 mg/mL (0.2 %) injection solution Performing Provider: Romario Membreno MD [facility] Administered by: Romario Membreno MD on 05/08/25 11:51 Dose Route Admin Location Dispensed Lot Number Expiration Date Pack age [facility] Professor Of Physical Education 20 mL Infiltration 20 mL [id number] 07/25/27 77135-643-46 [id number] [facility] Intake Visit Data Collection New Patient or Established: Established Patient (seen at [facility] within 3 years) Reason for Visit:: LEFT KNEE INJECTION Seen by Clinical Staff ONLY (RN/MA): No Construction Director Required: Yes PCP or OBGYN visit in last 3 months: Yes Hx Now: No Do You Feel Safe at Home: Yes Authorities Contacted: N/A Questionairres Past Medical History Past Medical History Have you ever been diagnosed with any of the following: Neurological Problems Seizures: No Cardiology Problems Congestive Heart Failure: No Varicose Veins: Yes Respiratory Problems Chronic Obstructive Pulmonary Disease (COPD): No Smoking: No Smoking Cessation Counseling: No Smoking Exposure: No Tobacco Use: No Stomache/Intestinal Problems Hepatitis: No Ulcer: Yes (gastritis) Genital/Urinary Problems Renal Disease: No Reproductive Problems Previous Pregnancies: Yes Musculoskeletal Problems Arthritis: Yes Endocrine Problems Diabetes Mellitus Type 1: No Diabetes Mellitus Type 2: No Other Problems Hospitalization: No Shingles: No Blood Transfusions: No Blood Transfusion Reaction: No Anesthesia Reactions: No Measles: Yes Cancer: No Subjective Visit Visit for: follow up visit, knee and injections (LEFT KNEE) Immunization / Flu Flu Vaccine in the Last 12 Months: No Flu Vaccine Exclusion Criteria: No Exclusion Criteria History of Present Illness Chief complaint: bilateral knee pain Patient is a 63-year-old female with right knee pain sp R TKA. SHe is doing well. She reports the left knee is bothering her and wants an injection on the left l Pain Pain level (0-10): 8 Pain duration: ALL DAY Pain location: inside (medial) and anterior Pain quality: sharp, dull and aching Pain timing: increases with activity and stairs Associated signs & symptoms: weakness and stiffness Ambulatory data Ambulatory device: none Treatments Improvement with previous injections: No Improvement with PT: No Improvement with NSAIDS: no Review of Systems Review of Systems: All systems negative unless otherwise noted in HPI.
[2025-05-08 10:38] VITALS: BP 116/72; PULSE 62; RESP 18; TEMP 36.7; O2SAT 98
== END 2025-05-08 10:41 | disposition home or self-care (01) ==
LOC: HODSRG 09:59
PROVIDERS: PCP Physician Assistant; Referring Provider Physician Assistant; Supervising Provider Orthopaedic Surgery Adult Reconstructive Orthopaedic Surgery; Visit Provider Orthopaedic Surgery Adult Reconstructive Orthopaedic Surgery
DX: Z96.651 Presence of right artificial knee joint (principal); M17.11 Unilateral primary osteoarthritis, right knee
CPT/HCPCS: 99213; J1010; J2795; G0463